=== PATIENT | female | born 1985 | race Caucasian/White ===

== ENCOUNTER 2020-05-01 14:30 | Emergency (ER) | payer OTHER, SELFPAY ==
--- NOTE | ~2020-05-01 | CT_ITS ---
EXAMINATION: CT brain wo con DATE: 05/01/2020 16:12 INDICATION: Syncope TECHNIQUE: Computed tomography (CT) of the head was performed without intravenous contrast. The mA wa s adjusted according to patient size. Iterative reconstruction technique was employed. Exam dose: 60 5.33 mGy-cm total exam DLP. COMPARISON: None FINDINGS: There is greater than expected cerebral volume loss for age. No intracranial mass lesion or hemorrhage or cerebrovascular accident is evident. No midline shift or mass effect. No subdural or epidural hematoma. The orbital contents are symmetric and unremarkable. Included paranasal sinuses and mastoid air cells are normally developed and aerated. No fracture or b one destruction of the cranial vault. IMPRESSION: Greater than expected cerebral volume loss; no acute intracranial finding or skull fract ure Reviewed, dictated and finalized at [facility]. Reviewed, dictated and finalized at [facility]. IMPRESSION: Greater than expected cerebral volume loss; no acute intracranial finding or skull fracture
[2020-05-01 14:36] LABS: Glucose Point of Care 162 (65-105)
[2020-05-01 14:50] VITALS: BP 159/102; PULSE 104; RESP 18; TEMP 37.5; O2SAT 100
[2020-05-01 15:15] LABS: Basophils Percent Auto 0.4 % (0.2-1.2); Eosinophils Percent Auto 0.2 % (0-4.4); Hematocrit 36.8 % (37.0-47.0); Hemoglobin 12.1 g/dL (12.0-15.0); Immature Granulocyte Absolute 0.04 K/mm3 (0.00-0.031); Immature Granulocyte Percent A 0.5 % (0-0.5); Lymphocytes Percent Auto 30.8 % (18.3-44.2); Mean Corpuscular HGB Conc 32.9 g/dl (32-36); Mean Corpuscular Hemoglobin 27.7 pg (26-34); Mean Corpuscular Volume 84.2 fl (80-100); Mean Platelet Volume 9.5 fl (7.4-10.4); Monocytes Absolute Auto 0.4 K/mm3 (0.1-0.6); Monocytes Percent Auto 4.7 % (2.6-8.5); Neutrophils Absolute Auto 5.4 K/mm3 (1.3-6.7); Neutrophils Percent Auto 63.4 % (45.5-73.1); Platelet Count Result 264 k/mm3 (150-375); Red Blood Count 4.37 M/mm3 (4.2-5.4); Red Cell Distribution Width 14.7 % (11.5-14.5); White Blood Count 8.5 K/mm3 (4.5-10.0)
[2020-05-01 15:20] LABS: Add Urine Microscopic? YES; Appearance Urine Clear (Clear); Bilirubin Urine Negative (Negative); Blood Urine 2+ (Negative); Color Urine Yellow (Yellow); Glucose Urine UA Negative (Negative); Ketones Urine Negative (Negative); Leukocyte Esterase Ur Trace LEU/UL (Negative); Mucus Urine Rare /lpf; Nitrate Urine Negative (Negative); Protein Urine Negative (Negative); Specific Grav Ur 1.012 (1.001-1.035); Squamous Epithelial Cell Urine Many /hpf (Few); Urobilinogen Urine Negative mg/dL (<2.0); WBC Urine 0-3 /hpf
[2020-05-01 15:32] LABS: Blood Urea Nitrogen 6 mg/dL (7-17); Calcium 8.9 mg/dL (8.4-10.2); Carbon Dioxide 23 mmol/L (22-30); Chloride 101 mmol/L (98-107); Estimated CRCL calculation 112 ml/min; Estimated Glomerular Filt Rate > 60; Glucose 136 mg/dL (65-105); Potassium 3.2 mmol/L (3.4-5.0); Sodium 136 mmol/L (137-145)
--- NOTE | 2020-05-01 16:38 | ED.GENADULT ---
HPI - General Adult General Chief complaint: Recheck/Abnormal Lab/Rx Stated complaint: weakness/ hx of hypoglycemia yesterday Time Seen by Provider: 05/01/20 15:52 Source: patient Mode of arrival: ambulatory Limitations: no limitations History of Present Illness HPI narrative: 34-year-old with a history of anxiety disorder here with complaints of passing out spell at the airbags last evening. Patient states that she went along with HER-2 other kids to the store to buy chicken while she was trying to do that she passed out for a few minutes. Paramedics were called and at that time as per her history her blood sugar was low and she was disoriented for a few minutes, she later regained her memory and was told to go to the emergency room. However patient states that she had 2 kids with her and she did not have child day care provider. She decided to come to the ER for evaluation. She presently denies any headache, chest pain, shortness of breath. She denies had similar episodes in the past. She states that she is not in any distress at this time. Onset (ago): day(s) (1) Severity: moderate Exacerbating factors: none Associated symptoms: denies other symptoms Related Data Home Medications Medication Instructions Recorded Confirmed bupropion HCl 150 mg PO QAM 05/01/20 buspirone 10 mg PO BID 05/01/20 gabapentin 300 mg PO TID 05/01/20 lorazepam 0.5 mg PO TID PRN 05/01/20 trazodone 50 mg PO HS 05/01/20 Allergies Allergy/AdvReac Type Severity Reaction Status Date / Time No Known Allergies Allergy Unverified 05/01/20 14:58 Review of Systems Review of Systems: All systems reviewed & are unremarkable except as noted in HPI and below Constitutional: Constitutional: Reports no additional constitutional complaints Eyes: Eyes: Reports no additional eye complaints ENT: Reports system reviewed and no additional complaints, except as documented Cardiovascular: Cardiovascular: Reports no additional cardiovascular complaints Respiratory: Respiratory: Reports as per HPI Gastrointestinal: Gastrointestinal: Reports no additional gastrointestinal complaints Integumentary/Breasts: Skin/Breast: Reports system reviewed and no additional complaints, except as docu Neurologic: Reports as per HPI Psychiatric: Psychiatric: Reports no additional psychiatric complaints Endocrine: Endocrine: Reports no additional endocrine complaints PMFSH Social History Social History Gender identity (if verbalized by the patient): Female Exam Const: General: no acute distress and alert Orientation/consciousness: patient oriented x3 HENMT: Head: normal to inspection Eyes: Pupils: Equal, round and reactive pupils present Neck: Neck: normal visual inspection Chest: Chest palpation & inspection: normal inspection of the chest Resp: Effort & Inspection: normal respiratory effort Auscultation: clear to auscultation bilaterally Cardio: Rate: regular rate Back/Spine/Pelvis: Back: no CVA tenderness Skin: General skin exam: normal color Neuro: General: patient oriented x3, moves all extremities and CN's II-XI intact bilaterally Extrem: General: normal to inspection Course Course Emergency Course: Patient still remains asymptomatic here in the ER. I discussed labs, CT findings with the patient. At this time syncope could be a seizure versus anxiety attack. Advised her to follow-up with the primary doctor and a neurologist in the near future. Vital Signs Vital signs: Vital Signs Temperature 37.5 C 05/01/20 14:50 Pulse Rate 104 H 05/01/20 14:50 Respiratory Rate 18 05/01/20 14:50 Blood Pressure 159/102 H 05/01/20 14:50 Pulse Oximetry 100 05/01/20 14:50 Temperature 37.5 C 05/01/20 14:50 Pulse Rate 104 H 05/01/20 14:50 Respiratory Rate 18 05/01/20 14:50 Blood Pressure 159/102 H 05/01/20 14:50 Pulse Oximetry 100 05/01/20 14:50 Medical Decision Making Vital Signs Vital Signs: Vital Signs Tempera
--- NOTE | 2020-05-01 16:54 | ECG_ITS ---
Measurements Intervals [place] Rate: 86 P: 11 AL: 132 QRS: 17 QRSD: 82 T: 9 QT: 344 QTc: 413 Interpretive Statements SINUS RHYTHM NORMAL ECG Electronically Signed On 05-02-2020 7:06:13 CDT by Jorge Sales D.O.
== END 2020-05-01 17:18 | disposition home or self-care (01) ==
PROVIDERS: Emergency Medicine; Emergency Provider Family Medicine
DX: R55 Syncope and collapse (principal)
CPT/HCPCS: 36415; 70450; 80048; 81001; 82948; 85025; 93005; 99284

== ENCOUNTER 2021-03-28 11:50 | Emergency (ER) | payer OTHER, SELFPAY ==
--- NOTE | ~2021-03-28 | XR_ITS ---
XR chest 2V DATE: 03/28/2021 12:03 INDICATION: Intermittent sharp shooting chest pain for 2 days TECHNIQUE: PA and lateral views COMPARISON: 06/15/2019 PA and lateral chest FINDINGS: Normal heart size. No hilar or mediastinal enlargement. No pulmonary infiltrate or consolid ation, pleural effusion or pulmonary vascular congestion or pneumothorax. IMPRESSION: Negative Reviewed, dictated and finalized at [facility]. IMPRESSION: Negative
--- NOTE | 2021-03-28 11:52 | ECG_ITS ---
Measurements Intervals [place] Rate: 110 P: 45 LA: 121 QRS: 43 QRSD: 73 T: 17 QT: 312 QTc: 424 Interpretive Statements SINUS TACHYCARDIA BORDERLINE ST-T WAVE ABNORMALITY- ANTEROLAT/INF LEADS BASELINE ARTIFACT- I, II, III, V3-V6 ABNORMAL ECG Electronically Signed On 03-28-2021 19:15:49 CDT by Jorge Sales D.O.
[2021-03-28 11:54] VITALS: BP 152/99; PULSE 119; RESP 18; TEMP 36.4; O2SAT 97
[2021-03-28 12:15] LABS: Basophils Absolute Auto 0.1 K/mm3 (0.0-0.1); Basophils Percent Auto 0.4 % (0.2-1.2); Eosinophils Percent Auto 0.3 % (0-4.4); Hematocrit 42.8 % (37.0-47.0); Hemoglobin 14.2 g/dL (12.0-15.0); Immature Granulocyte Absolute 0.05 K/mm3 (0.00-0.031); Immature Granulocyte Percent A 0.4 % (0-0.5); Lymphocytes Absolute Auto 4.11 K/mm3 (0.9-3.2); Lymphocytes Percent Auto 35.8 % (18.3-44.2); Mean Corpuscular HGB Conc 33.2 g/dl (32-36); Mean Corpuscular Volume 87.5 fl (80-100); Mean Platelet Volume 9.3 fl (7.4-10.4); Monocytes Absolute Auto 0.5 K/mm3 (0.1-0.6); Monocytes Percent Auto 4.4 % (2.6-8.5); Neutrophils Absolute Auto 6.7 K/mm3 (1.3-6.7); Neutrophils Percent Auto 58.7 % (45.5-73.1); Platelet Count Result 342 k/mm3 (150-375); Red Blood Count 4.89 M/mm3 (4.2-5.4); Red Cell Distribution Width 12.5 % (11.5-14.5); White Blood Count 11.5 K/mm3 (4.5-10.0)
[2021-03-28 12:25] LABS: Anion Gap 9 mmol/L (8-16); Blood Urea Nitrogen 8 mg/dL (7-17); Calcium 9.7 mg/dL (8.4-10.2); Carbon Dioxide 25 mmol/L (22-30); Chloride 104 mmol/L (98-107); Estimated CRCL calculation 136 ml/min; Estimated Glomerular Filt Rate > 60; Glucose 110 mg/dL (65-105); Potassium 3.7 mmol/L (3.4-5.0); Sodium 138 mmol/L (137-145)
[2021-03-28 12:25] LABS: INR 0.9; Prothrombin Time 12.3 Seconds (11.1-14.7)
[2021-03-28 12:27] LABS: Partial Thromboplastin Time 24.6 SECONDS (22.3-36.8)
[2021-03-28 12:34] VITALS: BP 138/85; PULSE 108; O2SAT 100
[2021-03-28 12:37] LABS: Troponin I < 0.012 ng/mL (0.000-0.034)
[2021-03-28 13:42] LABS: D Dimer 0.28 ug/mL (<0.48)
--- NOTE | 2021-03-28 13:54 | ED.CHESTPAIN ---
HPI - Chest Pain General Chief Complaint: Chest Pain Stated Complaint: chest pain Time Seen by Provider: 03/28/21 12:39 Source: patient Mode of arrival: ambulatory Limitations: no limitations History of Present Illness HPI narrative: 35-year-old with a history of depression here with complaints of having some chest discomfort started this morning. She states that I do not feel right. She also states that she is short of breath at times. No history of fever or chills. Denies any cough. MD complaint: chest discomfort Onset (ago): day(s) (1) Pain radiation: none Quality: heaviness Relieving factors: nothing Risk Factors Coronary artery disease risk factors: none Thoracic aortic dissection risk factors: none Related Data Home Medications Medication Instructions Recorded Confirmed cariprazine [Vraylar] 1.5 mg PO DAILY 03/28/21 gabapentin 300 mg PO BID 03/28/21 Allergies Allergy/AdvReac Type Severity Reaction Status Date / Time No Known Allergies Allergy Verified 03/28/21 12:29 Review of Systems Review of Systems: All systems reviewed & are unremarkable except as noted in HPI and below Constitutional: Constitutional: Reports no additional constitutional complaints Eyes: Eyes: Reports no additional eye complaints ENT: Reports system reviewed and no additional complaints, except as documented Cardiovascular: Cardiovascular: Reports no additional cardiovascular complaints Respiratory: Respiratory: Reports no additional respiratory complaints Gastrointestinal: Gastrointestinal: Reports no additional gastrointestinal complaints Musculoskeletal: Musculoskeletal: Reports no additional musculoskeletal complaints Integumentary/Breasts: Skin/Breast: Reports system reviewed and no additional complaints, except as docu Neurologic: Reports system reviewed and no additional complaints, except as documented Psychiatric: Psychiatric: Reports no additional psychiatric complaints PMFSH Social History Social History Gender identity (if verbalized by the patient): Female Exam Narrative: Exam Narrative: GENERAL: Well-appearing, well-nourished, and in no acute distress. HEAD: Normocephalic, atraumatic. EYES: PERRLA and EOMI.. NECK: Supple. CHEST: Clear to auscultation. No respiratory distress. HEART: Regular rate and rhythm. No murmur heard. Normal peripheral pulses. ABDOMEN: Soft, nontender, nondistended, normal active bowel sounds. EXTREMITIES: Normal range of motion. No edema. SKIN: Warm, dry, no rash. NEURO: No focal deficits. Alert and oriented x3. PSYCH: Normal mood and affect. Course Course Emergency Course: Patient comfortably sitting in on the bed in no discomfort had no further episodes of chest pain while she was here in the ER. I discussed labs, chest x-ray findings at this time her pain appears to be moderate typical. Advised her to follow-up with her primary doctor. Vital Signs Vital signs: Vital Signs Temperature 36.4 C 03/28/21 11:54 Pulse Rate 119 H 03/28/21 11:54 Respiratory Rate 18 03/28/21 11:54 Blood Pressure 152/99 H 03/28/21 11:54 Pulse Oximetry 97 03/28/21 11:54 Temperature 36.4 C 03/28/21 11:54 Pulse Rate 108 H 03/28/21 12:34 Respiratory Rate 18 03/28/21 11:54 Blood Pressure 138/85 03/28/21 12:34 Pulse Oximetry 100 03/28/21 12:34 MDM - Chest Pain Differential Diagnosis Differential diagnosis: Likely unstable angina pectoris, atypical chest pain, costochondritis and chest pain Lab Data Result diagrams: 03/28/21 12:10 03/28/21 12:10 Labs: Lab Results 03/28/21 03/28/21 03/28/21 Range/Units 12:09 12:09 12:10 WBC 11.5 H (4.5-10.0) K/mm3 RBC 4.89 (4.2-5.4) M/mm3 Hgb 14.2 (12.0-15.0) g/dL Hct 42.8 (37.0-47.0) % MCV 87.5 (80-100) fl MCH 29.0 (26-34) pg MCHC 33.2 (32-36) g/dl RDW 12.5 (11.5-14.5) % Plt Count 342
[2021-03-28 14:06] VITALS: BP 127/61; PULSE 86; RESP 19; O2SAT 100
== END 2021-03-28 14:07 | disposition home or self-care (01) ==
PROVIDERS: Emergency Medicine; Emergency Provider Family Medicine
DX: R07.89 Other chest pain (principal); R00.0 Tachycardia, unspecified; R94.31 Abnormal electrocardiogram [ECG] [EKG]
CPT/HCPCS: 36415; 71046; 80048; 84484; 85025; 85380; 85610; 85730; 93005; 99284

== ENCOUNTER 2021-12-12 10:02 | Emergency (ER) | payer OTHER, SELFPAY ==
[2021-12-12 10:23] VITALS: BP 140/99; PULSE 100; RESP 18; TEMP 36.4; O2SAT 100
--- NOTE | 2021-12-12 10:27 | ED.URI ---
HPI - URI/Sore Throat General Chief Complaint: Upper Respiratory Infection Stated Complaint: difficulty breathing, chest pain Time Seen by Provider: 12/12/21 10:27 Source: patient Mode of arrival: ambulatory Limitations: no limitations History of Present Illness HPI Narrative: Danica is a 36-year-old female patient who ambulated into the [facility]. Patient states she has had left-sided chest pain that wraps around to her back starting on yesterday. Patient states she does feel short of breath. Patient states she had an upper respiratory infection starting on November 30, 2021. She has taken Sudafed, DayQuil and NyQuil, and multiple other kxeu-ago-yeuaxun cough medications. Patient states she had multiple COVID test which all have been negative. Patient states she was feeling better and then yesterday started having the left-sided chest pain and occasional shortness of breath. Patient states she does have a cough that is nonproductive. Patient denies any past respiratory illnesses; she denies any cardiac history.; She denies any nausea, vomiting, diaphoresis or any other symptoms. She states that the pain is constant and has been there for greater than 24 hours. She states that increased activity does not change the pain. She states she is feels short of breath since November 30. MD elicited complaint: cough Related Data Home Medications Medication Instructions Recorded Confirmed bupropion HCl 150 mg PO QAM 05/01/20 12/12/21 Allergies Allergy/AdvReac Type Severity Reaction Status Date / Time No Known Allergies Allergy Verified 12/12/21 10:40 Review of Systems Review of Systems: CONSTITUTIONAL: Denies body aches, fever, chills, or sweats. EYES: Denies visual changes, redness, or discharge. ENT: Denies rhinorrhea,+ congestion, +sore throat, denies otalgia. CARDIOVASCULAR: +chest pain, denies palpitations, or edema. RESPIRATORY: + cough + dyspnea. GASTROINTESTINAL: Denies abdominal pain, nausea, vomiting, or diarrhea. GENITOURINARY: Denies dysuria or hematuria. SKIN: Denies rash, itching, or wounds. MUSCULOSKELETAL: Denies back pain, joint pain, or myalgia. NEUROLOGIC: Denies headache, numbness, tingling, or weakness. PSYCH: Denies depression or anxiety. All systems reviewed & are unremarkable except as noted in HPI and below PMFSH Social History Social History Gender identity (if verbalized by the patient): Female Comments At time of signature, I have reviewed and agree with nursing past medical, surgical, social and family history unless otherwise noted. Please see nursing chart for further information. There is no relevant family history pertinent to the presenting complaint Exam Narrative: GENERAL: Well-appearing, well-nourished, and in no acute distress. HEAD: Normocephalic, atraumatic. EYES: EOMI. No redness or drainage. Conjunctivae normal. ENT: Mucous membranes pink and moist. Nares clear. No rhinorrhea. Bilateral tympanic membranes are opaque with moderate fluid. No erythema is noted posterior pharynx is mildly erythemic with 4+ tonsils and moderate amount of postnasal drainage is noted. . Uvula midline. NECK: Normal AROM. Supple. Bilateral anterior cervical lymphadenopathy. CHEST: No respiratory distress. Clear to auscultation, minimally decreased in the upper lobes. HEART: Regular rate and rhythm. No murmur appreciated. Normal peripheral pulses. MUSCULOSKELETAL: No bony tenderness. EXTREMITIES: Normal range of motion. No edema. SKIN: Warm, dry, no rash. Capillary refill normal. Normal skin turgor. NEURO: No focal deficits. Alert and oriented x3. Gait steady. PSYCH: Normal affect. No signs of depression or anxiety. Course Course Emergency Course: Patient was examined. EKG was performed. Level of Care: Express Care Visit Vital Signs Vital signs: Vital Signs Temperature 36.4 C 12/12/21 10:23 Pulse Rate 100 12/12/21 10
--- NOTE | 2021-12-12 11:27 | ECG_ITS ---
Measurements Intervals [place] Rate: 81 P: 28 MT: 124 QRS: 35 QRSD: 81 T: 28 QT: 368 QTc: 428 Interpretive Statements SINUS RHYTHM NORMAL ECG Electronically Signed On 12-12-2021 13:47:18 DATA PROCESSOR by Jorge Sales D.O.
== END 2021-12-12 10:52 | disposition home or self-care (01) ==
PROVIDERS: Emergency Provider Nurse Practitioner Family
DX: M94.0 Chondrocostal junction syndrome [Tietze] (principal); F32.A Depression, unspecified
CPT/HCPCS: 93005; 99213; G0463

== ENCOUNTER 2022-10-15 21:03 | Emergency (ER) | payer OTHER, SELFPAY ==
--- NOTE | ~2022-10-15 | XR_ITS ---
EXAM: XR foot RT min 3V DATE: 10/15/2022 21:20 HISTORY: FOOT HIT UNK OBJECT WHILE ZIPLINING, PAIN BASE OF 1ST TOE . COMPARISON: None available. FINDINGS: Normal mineralization. No fracture or dislocation. No lytic or blastic lesion. Joint space s are maintained. Plantar enthesopathy.Z No erosion or periosteal change. Soft tissues within normal limits. IMPRESSION: No acute osseous finding in the right foot. Reviewed, dictated and finalized at [facility]. OGRAPHIC LABORATORY TECHNICIAN
[2022-10-15 21:10] VITALS: BP 130/99; PULSE 97; RESP 16; TEMP 36.9; O2SAT 100
--- NOTE | 2022-10-15 21:40 | ED.LOWEXIN ---
HPI - Extremity Injury (Lower) General Chief Complaint: Extremity Injury, Lower Stated Complaint: possible toe fracture Time Seen by Provider: 10/15/22 21:04 History of Present Illness HPI Narrative: 37-year-old female presents to the emergency room for evaluation of pain to her right toe. Patient states that she was zip lining earlier today when she stubbed her toe on the ground. Patient states that she is concerned that she may have dislocated or broken her right great toe. Pain is worse with ambulation, specifically when she flexes her great toe. Patient has not taken any medications to alleviate her symptoms. Related Data Home Medications Medication Instructions Recorded Confirmed bupropion HCl 150 mg 24 hr tablet, 150 mg PO QAM 05/01/20 08/04/22 extended release cariprazine 1.5 mg capsule 1.5 mg PO DAILY 03/28/21 08/04/22 (Vraylar) gabapentin 300 mg tablet 300 mg PO BID 03/28/21 08/04/22 lorazepam 1 mg tablet 1 mg PO DAILY PRN 08/04/22 08/04/22 Allergies Allergy/AdvReac Type Severity Reaction Status Date / Time No Known Allergies Allergy Verified 08/04/22 09:22 Review of Systems Review of Systems: CONSTITUTIONAL: Denies fever, chills, or sweats. EYES: Denies visual changes, redness, or discharge. ENT: Denies rhinorrhea, congestion, sore throat, or otalgia. CARDIOVASCULAR: Denies chest pain, palpitations, or edema. RESPIRATORY: Denies cough or dyspnea. GASTROINTESTINAL: Denies abdominal pain, nausea, vomiting, or diarrhea. GENITOURINARY: Denies dysuria or hematuria. SKIN: Denies rash or itching. MUSCULOSKELETAL: Reports right great toe pain NEUROLOGIC: Denies headache, numbness, dizziness, or weakness. PSYCHIATRIC: Denies anxiety or depression. [facility] Past Medical History Medical History Anemia Bipolar 1 disorder Carpal tunnel syndrome Counseling on health promotion and disease prevention Depression Encounter for medication management Inflammatory arthritis Thyroid disease Undifferentiated connective tissue disease Vitamin D deficiency Surgical History Surgical History H/O section History of carpal tunnel surgery Family History Family History Mother Arthritis Depression Heart disease Father Depression Heart disease Hypertension Heart attack Sibling Depression Mental health disorder Grandparent Depression Social History Social History Smoking status: Never smoker Alcohol intake: current Gender identity (if verbalized by the patient): Female Exam Narrative: GENERAL: Well-appearing, well-nourished, no physical limitations, and in no acute distress. HEAD: Normocephalic, atraumatic. EYES: Conjunctivae normal, PERRLA and EOMI. CHEST: Clear to auscultation. No respiratory distress. No wheezes rales or rhonchi. HEART: Regular rate and rhythm. No murmur heard. Normal peripheral pulses. EXTREMITIES: Right foot: +TTP with ecchymosis to the MTP, no bony abnormality, neurovascular is intact distally, no obvious bony abnormality SKIN: Warm, dry, no rash. No noted wounds NEURO: No focal deficits. Alert and oriented x3. MAEW. CN's II-XI intact bilaterally, antalgic gait PSYCH: Cooperative. Normal mood and affect. Course Vital Signs Vital signs: Vital Signs Temperature 36.9 C 10/15/22 21:10 Pulse Rate 97 10/15/22 21:10 Respiratory Rate 16 10/15/22 21:10 Blood Pressure 130/99 H 10/15/22 21:10 Pulse Oximetry 100 10/15/22 21:10 Temperature 36.9 C 10/15/22 21:10 Pulse Rate 97 10/15/22 21:10 Respiratory Rate 16 10/15/22 21:10 Blood Pressure 130/99 H 10/15/22 21:10 Pulse Oximetry 100 10/15/22 21:10 Discharge Plan Discharge Clinical Impression: Sprain of great toe, right Patient Disposition: Home, [place]n
[2022-10-15 21:45] VITALS: BP 135/89; PULSE 93; RESP 16; O2SAT 100
== END 2022-10-15 21:46 | disposition home or self-care (01) ==
PROVIDERS: Emergency Provider Nurse Practitioner Family; PCP Nurse Practitioner
DX: S93.501A Unspecified sprain of right great toe, initial encounter (principal); M19.90 Unspecified osteoarthritis, unspecified site; M35.9 Systemic involvement of connective tissue, unspecified; E07.9 Disorder of thyroid, unspecified; E55.9 Vitamin D deficiency, unspecified; F31.9 Bipolar disorder, unspecified; Z86.2 Personal history of diseases of the blood and blood-forming organs and certain disorders involving the immune mechanism; W22.8XXA Striking against or struck by other objects, initial encounter
CPT/HCPCS: 73630; 99283

== ENCOUNTER 2022-11-08 16:30 | Outpatient (CLI) | payer OTHER, SELFPAY ==
--- NOTE | ~2022-11-08 | US_ITS ---
Pelvic ultrasound. Clinical History: Menorrhagia Technique: Realtime transabdominal and transvaginal scanning of the pelvis was performed. Color flow Doppler and Doppler spectral analysis were performed. Findings: The uterus is anteverted. The endometrial stripe has a thickness of 14 mm. No focal mass i s identified. The right ovary measures 4.3 x 2.0 x 2.6 cm. Right ovarian corpus luteal cyst present. The left ovary measures 3.3 x 1.7 x 1.5 cm. No significant left ovarian or adnexal mass is seen. Vascular flow present in both ovaries on Doppler spectral analysis. There is no evidence of free fluid in the cul de sac. Impression: No significant abnormality seen. Reviewed, dictated and finalized at location [] FIELD OPERATOR Impression: No significant abnormality seen.
== END 2022-11-08 16:31 | disposition home or self-care (01) ==
PROVIDERS: PCP Nurse Practitioner; Visit Provider Nurse Practitioner
DX: N92.0 Excessive and frequent menstruation with regular cycle (principal); N93.9 Abnormal uterine and vaginal bleeding, unspecified
CPT/HCPCS: 76830; 76856

== ENCOUNTER 2022-12-30 13:22 | Outpatient (CLI) | payer OTHER, SELFPAY | END 2022-12-30 13:23 | disposition home or self-care (01) | PROVIDERS: PCP Nurse Practitioner; Visit Provider Obstetrics & Gynecology | DX: N92.0 Excessive and frequent menstruation with regular cycle (principal) | CPT/HCPCS: 36415; 86850; 86900; 86901 ==

== ENCOUNTER 2023-01-06 01:01 | Day surgery (SDC) | payer OTHER, SELFPAY ==
[2022-12-26 14:56] VITALS: BMI 32.1
--- NOTE | 2022-12-26 15:03 | PC.NURSE ---
Report to the Outpatient Waiting Room, entrance under the green pavilion located off [facility], at time 6:00 on date 01/06/23. Planned Procedure Time: 7:30. Time changes happen often and if your time is changed the preop area will call you the afternoon before. - You and your visitor will be asked to self-screen and do not enter if you have any COVID symptoms. - Only one visitor is requested with a max of two and NO children visitors are allowed at this time. - The patient visitor may be requested to leave or wait in car when not with patient due to distancing restrictions. - A mask is optional within the hospital at this time. Patients may have clear liquids (water, carbonated beverages, clear teas, apple juice) until 3 hours prior to surgery (4:30) with a maximum of 20 ounces. - No food from midnight until time of surgery Take the following medications with a SIP of water the morning of surgery: BUPROPION, VRAYLAR, GABAPENTIN, PREDNISONE DO NOT STOP ANY OF YOUR OTHER PRESCRIPTION MEDICATIONS PRIOR TO SURGERY EXCEPT THE FOLLOWING Medications to discontinue per physician: VITAMINS/SUPPLEMENTS Date to take last dose: 01/02/[address] RANDALL ABOUT NAPROXEN/IBUPROFEN Please no make-up, nail serbian, hairspray, perfume, deodorant, or body powder the day of surgery. No jewelry (including any body piercings) or valuables the day of surgery, leave them at home. Please take a shower or bath the night before, or the morning of, surgery with an antibacterial soap. Wear comfortable, loose fitting clothing. - Jewelry must be removed prior to entering the operating room. Rings and piercings that are not removed may be cut off. - The hospital will not accept responsibility for valuables. - Please leave all valuables, including medications, at home the day of surgery. If you are going home after surgery, a licensed driver helper must drive you home. - NO public transportation without another adult if you receive anesthesia. - We recommend that an adult stay with you for 24 hours following discharge. - We also recommend that you do not drive, make important decision, drink alcoholic beverages, or take any drugs that were not prescribed by your health care provider for at least 24 hours after your discharge time. Follow any additional instructions given to you from your surgeon. If you or anyone in your household have experienced Covid symptoms in the past week, please notify your surgeon or the nurse liaison at the phone number below for possible testing. Telephone instructions given to TONJA FELDER and asked if any additional questions and then verbalized understanding. Patient advised to call surgeon office or pre surgery nurse liaison [phone] if any additional questions.
--- NOTE | 2023-01-05 13:26 | P.PNAN_ITS ---
Anes - Initial Pre Proc Eval Procedure: Operation Date: 01/06/23 07:30 Proposed Procedures p Robotic Assisted Laparoscopic Hysterectomy with Bilateral Salpingectomy - Saran Kim MD Date/Time: 01/05/23 13:26 Surgeon: Saran Kim MD Pre Op Diagnosis: menorrhagia Patient Data Age: 37 Gender: F Height: 1.63 m Weight: 84.82 kg Allergies Allergy/AdvReac Type Severity Reaction Status Date / Time No Known Allergies Allergy Verified 12/26/22 14:54 Home Medications Medication Instructions Recorded Confirmed Type bupropion HCl 150 mg 24 hr tablet, 150 mg PO QAM 05/01/20 12/26/22 History extended release cariprazine 1.5 mg capsule 1.5 mg PO DAILY 03/28/21 12/26/22 History (Vraylar) gabapentin 300 mg tablet 300 mg PO BID 03/28/21 12/26/22 History naproxen 500 mg tablet (Naprosyn) 500 mg PO BID #28 tabs 12/12/21 12/26/22 Rx hydroxychloroquine 200 mg tablet 400 mg PO DAILY #60 tabs 08/31/22 12/26/22 Rx (Plaquenil) prednisone 2.5 mg tablet 2.5 mg PO DAILY #40 tabs 11/09/22 12/26/22 Rx cholecalciferol (vitamin D3) 125 125 mcg PO DAILY 12/26/22 12/26/22 History mcg (5,000 unit) tablet (Vitamin D3) ferrous sulfate 325 mg (65 mg 325 mg PO DAILY 12/26/22 12/26/22 History iron) tablet (Iron (ferrous sulfate)) ibuprofen 600 mg tablet 600 mg PO Q6H PRN Pain 12/26/22 12/26/22 History multivitamin 1 tablet PO DAILY 12/26/22 12/26/22 History Results Review: All pre-operative results and documents have been reviewed as part of the pre- operative evaluation. [facility] Past Medical History Medical History Anemia Bipolar 1 disorder Carpal tunnel syndrome Counseling on health promotion and disease prevention Depression Encounter for medication management Inflammatory arthritis Thyroid disease Undifferentiated connective tissue disease Vitamin D deficiency Surgical History Surgical History H/O section History of carpal tunnel surgery Family History Family History Mother Arthritis Depression Heart disease Father Depression Heart disease Hypertension Heart attack Sibling Depression Mental health disorder Grandparent Depression Social History Social History Smoking status: Never smoker Alcohol intake: current Drinks per week: 8 Alcohol use details: BEER Substance use: never Substance use type: does not use Living arrangements: with family Additional living arrangements comments: FATHER AND CHILDREN Gender identity (if verbalized by the patient): Female Spiritual care concerns: No Anes - Eval Final PreProcedure Day of Procedure 01/05/23 13:26 Results Review: All pre-operative results and documents have been reviewed as part of the pre- operative evaluation. Informed Consent: The patient's anesthetic plan and its attendant risks and benefits were discussed with the patient/family/POA. Questions were solicited and answers provided to the satisfaction of the patient/family/POA.
[2023-01-06] VITALS (9 sets, daily range): BP systolic 125–145; BP diastolic 81–88; PULSE 81–96; RESP 12–23; TEMP 36.6–37.1; O2SAT 93–100
[2023-01-06] MEDS: ACETAMINOPHEN 500 MG TABLET 1000 MG PO (06:16)
[2023-01-06] MEDS: LACTATED RINGERS 1,000 ML 30 ML IV CONT ×2 (06:30→09:48)
[2023-01-06] MEDS: KETOROLAC 15 MG/ML VIAL (*BKC) IV PUSH (06:40)
--- NOTE | 2023-01-06 06:56 | WPDANESEPPF ---
Anes - Initial Pre Proc Eval Procedure: Operation Date: 01/06/23 07:30 Proposed Procedures p Robotic Assisted Laparoscopic Hysterectomy with Bilateral Salpingectomy - Saran Kim MD Date/Time: 01/06/23 06:56 Surgeon: Saran Kim MD Pre Op Diagnosis: menorrhagia Patient Data Age: 37 Gender: F Height: 1.63 m Weight: 82.35 kg Last Vital Signs Temp 36.7 C 01/06/23 06:50 Pulse 86 01/06/23 06:50 Resp 20 01/06/23 06:50 BP 128/82 01/06/23 06:50 Pulse Ox 100 01/06/23 06:50 O2 Del Method Room Air 01/06/23 06:50 Allergies Allergy/AdvReac Type Severity Reaction Status Date / Time No Known Allergies Allergy Verified 01/06/23 06:12 Home Medications Medication Instructions Recorded Confirmed Type bupropion HCl 150 mg 24 hr tablet, 150 mg PO QAM 05/01/20 01/06/23 History extended release cariprazine 1.5 mg capsule 1.5 mg PO DAILY 03/28/21 01/06/23 History (Vraylar) gabapentin 300 mg tablet 300 mg PO BID 03/28/21 01/06/23 History naproxen 500 mg tablet (Naprosyn) 500 mg PO BID #28 tabs 12/12/21 01/06/23 Rx hydroxychloroquine 200 mg tablet 400 mg PO DAILY #60 tabs 08/31/22 01/06/23 Rx (Plaquenil) cholecalciferol (vitamin D3) 125 125 mcg PO DAILY 12/26/22 01/06/23 History mcg (5,000 unit) tablet (Vitamin D3) ferrous sulfate 325 mg (65 mg 325 mg PO DAILY 12/26/22 01/06/23 History iron) tablet (Iron (ferrous sulfate)) ibuprofen 600 mg tablet 600 mg PO Q6H PRN Pain 12/26/22 01/06/23 History multivitamin 1 tablet PO DAILY 12/26/22 01/06/23 History Patient hx anesthesia problems: none Family hx anesthesia problems: none Results Review: All pre-operative results and documents have been reviewed as part of the pre-operative evaluation. [facility] Past Medical History Medical History Anemia Bipolar 1 disorder Carpal tunnel syndrome Counseling on health promotion and disease prevention Depression Encounter for medication management Inflammatory arthritis Thyroid disease Undifferentiated connective tissue disease Vitamin D deficiency Surgical History Surgical History H/O section History of carpal tunnel surgery Family History Family History Mother Arthritis Depression Heart disease Father Depression Heart disease Hypertension Heart attack Sibling Depression Mental health disorder Grandparent Depression Social History Social History Smoking status: Never smoker Alcohol intake: current Drinks per week: 8 Alcohol use details: BEER Substance use: never Substance use type: does not use Living arrangements: with family Additional living arrangements comments: FATHER AND CHILDREN Gender identity (if verbalized by the patient): Female Spiritual care concerns: No Anes - Eval Final PreProcedure Day of Procedure 01/06/23 06:56 Patient weight: obese Heart: regular rate and rhythm Lungs: clear to auscultation Airway: Mallampati scale class II Neurological: alert and oriented Last oral intake: >/= 8 hours ASA classification: II Emergent: no Anesthetic plan: proceed Anesthesia type and monitoring: general ETT and standard monitoring Results Review: All pre-operative results and documents have been reviewed as part of the pre-operative evaluation. Informed Consent: The patient's anesthetic plan and its attendant risks and benefits were discussed with the patient/family/POA. Questions were solicited and answers provided to the satisfaction of the patient/family/POA.
--- NOTE | 2023-01-06 07:17 | WPDHPUPDATE1 ---
History and Physical Update Update Date/Time: 01/06/23 07:17 History and Physical has been reviewed, including an updated exam of the patient. There are NO changes in the patient's condition. Risks, benefits, and alternatives have been discussed and questions answered. Patient agrees to proceed with procedure.
[2023-01-06] MEDS: ceFAZolin 2 GM/D5W 50 ML 2 GM/50 ML BAG IVPB (07:31)
--- NOTE | 2023-01-06 09:36 | W.PM.PROC2 ---
Procedure Note - Detailed Date of Procedure 01/06/23 Pre-op Diagnosis menorrhagia Post-op Diagnosis Same Procedure Performed Robot assisted Total hysterectomy with bilateral salpingectomy. Surgeon Saran Kim MD Anesthesia General Indications heavy vaginal bleeding, pelvic pain Findings normal-appearing uterus, ovaries, and tubes. . Description of Procedure This patient was taken to the operating room. She was prepped and draped in the dorsal lithotomy position after induction of general anesthesia. The uterine manipulator and Priscila cup were placed. This was done with a speculum and tenaculum. The speculum was placed. The cervix was grasped with a tenaculum. The stay sutures were placed at 3 and 9:00 a.m.. The stay sutures of 0 Vicryl were tied to the appropriately Size scope after it was slipped around the cervix.. The tip of the AXEL manipulator was placed in the intrauterine cavity. The cup was slid into place around the cervix and into the fornices. It was locked into place. The sutures were then wrapped around the handle and tied under tension. A 8 mm skin incision was made in the left upper quadrant the abdomen. a 5 mm Visiport trocar was inserted into abdominal cavity and pneumoperitoneum was achieved. A 8 mm supraumbilical incision was made and a 8 mm trocar was inserted into the intrauterine cavity under direct visualization of the scope. an 8 mm incision was made in the right upper quadrant of the abdomen and an 8 mm robotic trocar was placed the inter uterine cavity under direct visualization the scope. An 11 mm trocar was inserted in the right upper quadrant of the abdomen rectal is a cystoscope after an incision was made there as well. The robot was docked. Electronic Orientation of the robot was performed. Bilateral ureteral lysis was performed. This was done from the pelvic brim down to the uterine artery. This was done with careful dissection using sharp and blunt dissection. The fallopian tubes were removed bilaterally. The mesosalpinx around the fallopian tubes were cauterized transected with LigaSure cautery. This was done in a bilateral fashion from the ovary to the uterine cornua. The fallopian tube was transected at the uterine cornu and amputated. The tube was taken out the left lower quadrant trocar site. In a stepwise fashion along the lateral aspects of the uterus the round ligament and broad ligaments were cauterized transected down to the level of the uterine arteries. A bladder flap was created in the bladder was moved distally to the end of the cervix and over the Priscila cup. The bilateral uterine arteries were cauterized and transected. Colpotomy was then performed. In a circumferential fashion the vagina was transected using unipolar cautery. The incision was made down on the Priscila cup. The uterus and cervix were taken out through the vagina. A pneumo occluder was placed in the vagina. The vaginal cuff was closed with a 0 V lock suture in a running fashion. The pelvis was irrigated with copious amounts antibiotic irrigation. The ureters were again examined and found to be intact and flowing freely under the uterine arteries into the bladder. The bladder was intact. It was examined directly. The vagina was irrigated with Betadine solution after removal of the Pneumo occluder. the trocars were removed after the robot was undocked. The skin was closed with subacute or Dermabond. The patient was taken to recovery room. She was stable condition. Sponge lap and needle counts were correct x2. Estimated Blood Loss 125 Urine Output 800 Drains Yes Packing No Pathology Yes Complications No immediate complications Condition Stable Disposition Floor
--- NOTE | 2023-01-06 09:52 | SUR.OPER ---
post op assessment in PACU/patient stated her wrists and hands and hips and lower back were without pain,numbness or tingling. Moving legs and moves hands wrists freely.
[2023-01-06] MEDS: fentaNYL CITRATE INJ (*CRX) 100 MCG/2 ML VIAL 25 MCG IV PUSH ×5 (09:57→10:26)
--- NOTE | 2023-01-06 10:57 | PC.NURSE ---
This patient, Danica Aguirre, was received from PACU on 01/06/23 at 1057. Patient/family oriented to unit policies and routines
[2023-01-06] MEDS: KETOROLAC 30 MG/ML VIAL (*BKC) IV PUSH ×2 (11:17→17:10)
[2023-01-06] MEDS: SIMETHICONE 80 MG TAB.CHEW PO ×4 (11:51→20:20)
[2023-01-06] MEDS: DEXTROSE 5%/LACTATED RINGERS 1,000 ML 125 ML IV CONT (11:51)
[2023-01-06] MEDS: HYDROcodone/acetaminophen (*CRX) 5-325 MG TABLET 1 TAB PO ×2 (13:58→17:11)
[2023-01-06] MEDS: GABAPENTIN 300 MG CAPSULE PO (17:10)
[2023-01-06] MEDS: HYDROcodone/acetaminophen (*CRX) 10-325 MG TABLET 1 TAB PO (20:19)
[2023-01-07 00:40] VITALS: BP 127/81; PULSE 88; RESP 16; TEMP 36.9; O2SAT 99
[2023-01-07] MEDS: HYDROcodone/acetaminophen (*CRX) 10-325 MG TABLET 1 TAB PO ×2 (00:44→08:01)
[2023-01-07 04:27] VITALS: BP 137/84; PULSE 91; RESP 18; TEMP 36.9; O2SAT 99
[2023-01-07 08:00] VITALS: BP 130/86; PULSE 82; RESP 16; TEMP 37; O2SAT 98
[2023-01-07] MEDS: HYDROXYCHLOROQUINE SULFATE 200 MG TABLET 400 MG PO (08:00)
[2023-01-07] MEDS: GABAPENTIN 300 MG CAPSULE PO (08:00)
[2023-01-07] MEDS: buPROPion HCL XL (24 HR) 150 MG TABCR PO (08:00)
[2023-01-07] MEDS: SIMETHICONE 80 MG TAB.CHEW PO (08:01)
[2023-01-07] MEDS: IBUPROFEN 600 MG TABLET PO (08:01)
--- NOTE | 2023-01-07 08:42 | PM.GYNPNOP ---
SLIDE DEVELOPER - A/P Postoperative Procedures: Procedures Operation Date: 01/06/23 07:30 Actual Procedure Side Surgeon p Robotic Assisted Laparoscopic Hysterectomy with Bilateral Salpingectomy Bilateral Saran Kim MD Postoperative day: 1 Postoperative status: doing well Postoperative plan: see orders Time Spent With Patient Time: Total time spent is greater than 50% in coordination of care (as documented) at patient's floor/unit and/or counseling patient: Time with patient: less than 15 minutes SLIDE DEVELOPER- PN:Subj Post-Op Subjective Date/time seen: 01/07/23 08:42 Subjective: patient reports feeling better, patient has no complaints and pain is well controlled Exam Const: General: healthy appearing, comfortable and no acute distress Resp: Auscultation: clear to auscultation bilaterally, no rales, no rhonchi and no wheezes Cardio: Rate: regular rate Heart sounds: no click, no murmurs and no rubs GI: Inspection: non-distended Auscultation: normal bowel sounds Extrem: General: normal to inspection, no pedal edema and no calf tenderness SLIDE DEVELOPER - PN: Obj Data Vital Signs Vital Signs: Vital Signs - 24 hr 01/06/23 09:47 01/06/23 10:02 01/06/23 10:17 Temperature 97.9 F Pulse Rate 88 85 82 Respiratory Rate 23 H 18 16 Blood Pressure 145/84 H 135/88 138/88 Pulse Oximetry 100 100 93 Oxygen Delivery Simple Face Mask Simple Face Mask Room Air Oxygen Flow Rate 10 10 01/06/23 10:32 01/06/23 10:47 01/06/23 11:00 Temperature 98.8 F 98.4 F Pulse Rate 90 89 81 Respiratory Rate 12 17 16 Blood Pressure 139/85 138/87 143/81 H Pulse Oximetry 94 93 96 Oxygen Delivery Room Air Room Air Oxygen Flow Rate 01/06/23 15:45 01/06/23 20:15 01/06/23 20:15 Temperature 98.7 F 98 F Pulse Rate 94 96 Respiratory Rate 16 18 Blood Pressure 125/82 134/86 Pulse Oximetry 98 99 Oxygen Delivery Room Air Oxygen Flow Rate 01/07/23 00:40 01/07/23 04:27 01/07/23 04:27 Temperature 98.5 F 98.4 F Pulse Rate 88 91 Respiratory Rate 16 18 Blood Pressure 127/81 137/84 Pulse Oximetry 99 99 Oxygen Delivery Room Air Oxygen Flow Rate Intake/Output Intake/Output: Intake & Output 01/04/23 01/05/23 01/06/23 01/07/23 23:59 23:59 23:59 23:59 Intake Total 1921 300 Output Total 2660 200 Balance -739 100 Meds/Results Medications: Active Medications Generic Name Dose Route Start Last Admin Trade Name Freq PRN Reason Stop Dose Admin Hydrocodone Bitart/Acetaminophen 1 tab 01/06/23 10:50 01/06/23 17:11 Hydrocodone/Acetaminophen (*Crx) 5-325 Mg Tablet PO 1 tab Q3H PRN Administration Pain Rated 5 or Less Hydrocodone Bitart/Acetaminophen 1 tab 01/06/23 10:50 01/07/23 08:01 Hydrocodone/Acetaminophen (*Crx) 10-325 Mg Tablet PO 1 tab Q3H PRN Administration Pain Rated 6 or Greater Bupropion HCl 150 mg 01/07/23 09:00 01/07/23 08:00 Bupropion Hcl Xl (24 Hr) 150 Mg Tabcr PO 150 mg QAM CINDY Administration Gabapentin 300 mg 01/06/23 17:00 01/07/23 08:00 Gabapentin 300 Mg Capsule PO 02/05/23 16:59 300 mg BID CINDY Administration Hydroxychloroquine Sulfate 400 mg 01/07/23 09:00 01/07/23 08:00 Hydroxychloroquine Sulfate 200 Mg Tablet PO 400 mg DAILY CINDY Administration Ibuprofen 600 mg 01/06/23 10:50 01/07/23 08:01 Ibuprofen 600 Mg Tablet PO 600 mg Q6H PRN Administration Cramping Miscellaneous Information 0 each 01/06/23 00:01 Cariprazine [Vraylar] 1.5 Mg = Non Formulary, Please Have Home Med Brougt In. XX 02/05/23 00:00 CLARIFY CINDY Naloxone HCl 0.1 mg 01/06/23 10:50 Naloxone Hcl 0.4 Mg/Ml Vial IV PUSH Q2M PRN Respiratory rate less than 10 Non-Formulary Medication 1.5 mg 01/07/23 09:00 Cariprazine [Vraylar] PO 02/06/23 08:59 DAILY CINDY Ondansetron HCl 4 mg 01/06/23 10:50 Ondansetron Inj 4 Mg/2 Ml Vial IV PUSH Q6H PRN Nausea And Vomiting Simethicone 80 mg 01/06/23 11:31 01/07/23
== END 2023-01-07 10:00 | disposition home or self-care (01) ==
LOC: ANHSURGERY 05:55 → ANHOB2 11:03
PROVIDERS: PCP Nurse Practitioner; Visit Provider Obstetrics & Gynecology
PROC: (CPT 58571; principal; 2023-01-06 07:30)
DX: N92.0 Excessive and frequent menstruation with regular cycle (principal); R10.2 Pelvic and perineal pain; N84.0 Polyp of corpus uteri; N80.00 Endometriosis of the uterus, unspecified; D25.1 Intramural leiomyoma of uterus; F31.9 Bipolar disorder, unspecified; E55.9 Vitamin D deficiency, unspecified; E66.9 Obesity, unspecified; Z68.31 Body mass index [BMI] 31.0-31.9, adult
CPT/HCPCS: 58571; S2900; 88307; 99199; A9270; J0690; J1100; J1170; J1885; J2250; J2405; J2704; J2710; J3010; J7030; J7120; J7121

== ENCOUNTER 2024-01-30 14:18 | Emergency (ER) | payer OTHER, SELFPAY ==
--- NOTE | 2024-01-30 14:32 | ED.GENADULT ---
HPI - General Adult General Stated complaint: flu like symptoms Source: patient, RN notes reviewed and old records reviewed Mode of arrival: ambulatory Limitations: no limitations History of Present Illness HPI narrative: 38 year old patient presents to [facility] with c/o cough, congestion, bilateral ear pressure, frequent sneezing this started Monday. Patient is taking DayQuil NyQuil with relief. Patient denies fevers, myalgia, chest pain, shortness of breath. Related Data Home Medications Medication Instructions Recorded Confirmed gabapentin 300 mg tablet 300 mg PO BID 03/28/21 01/30/24 Allergies Allergy/AdvReac Type Severity Reaction Status Date / Time No Known Allergies Allergy Verified 01/30/24 14:34 Review of Systems Constitutional: Constitutional: Reports no additional constitutional complaints, Denies body ache(s), Denies chills, Denies fatigue, Denies fever(s) and Denies headache(s) Eyes: Eyes: Reports no additional eye complaints and Denies blurry vision ENT: Reports system reviewed and no additional complaints, except as documented, Denies vertigo, Denies dizziness, Denies ear discharge, Reports otalgia, Denies facial pain, Denies headache(s), Reports nasal congestion, Reports nasal discharge, Denies sinus pain, Reports sinus pressure and Denies sore throat Cardiovascular: Cardiovascular: Reports no additional cardiovascular complaints, Denies chest pain, Denies chest pain at rest, Denies rapid heart rate and Denies dyspnea Respiratory: Respiratory: Reports no additional respiratory complaints, Reports chest congestion, Reports cough, Denies pain on inspiration, Denies pain with cough and Denies dyspnea Gastrointestinal: Gastrointestinal: Denies abdominal pain, Denies diarrhea, Denies nausea and Denies vomiting Integumentary/Breasts: Skin/Breast: Denies rash Neurologic: Reports system reviewed and no additional complaints, except as documented, Denies vertigo, Denies dizziness and Denies headache(s) Endocrine: Endocrine: Denies fatigue PMFSH Past Medical History Medical History Anemia Bipolar 1 disorder Carpal tunnel syndrome Counseling on health promotion and disease prevention Depression Encounter for medication management Inflammatory arthritis Thyroid disease Undifferentiated connective tissue disease Vitamin D deficiency Surgical History Surgical History H/O section History of carpal tunnel surgery Family History Family History Mother Arthritis Depression Heart disease Father Depression Heart disease Hypertension Heart attack Sibling Depression Mental health disorder Grandparent Depression Social History Social History Smoking status: Never smoker Alcohol intake: current Drinks per week: 8 Alcohol use details: BEER Substance use: never Substance use type: does not use Living arrangements: with family Additional living arrangements comments: FATHER AND CHILDREN Gender identity (if verbalized by the patient): Female Spiritual care concerns: No Comments At the time of my signature, I reviewed and agree with the nursing past medical, surgical, social, and family history. There is no relevant family history pertinent to the patient complaint. Exam Const: General: cooperative, healthy appearing, no acute distress and well nourished Nutritional Appearance: well nourished Orientation/consciousness: patient oriented x3 Limitations: no limitations HENMT: Head: normal to inspection and normocephalic Ears: external ears normal, TM normal on the left, EAC's normal, mastoids normal and TM abnormal dull on the right and retracted on the right Face/Nose/Sinus: normal facial exam Face and sinus: normal facial exam Mouth
[2024-01-30 14:36] VITALS: BP 138/86; PULSE 78; RESP 18; TEMP 36.6; O2SAT 100
== END 2024-01-30 14:53 | disposition home or self-care (01) ==
PROVIDERS: Emergency Provider Registered Nurse; PCP Nurse Practitioner
DX: B34.9 Viral infection, unspecified (principal); H69.91 Unspecified Eustachian tube disorder, right ear; Z20.822 Contact with and (suspected) exposure to COVID-19; M13.80 Other specified arthritis, unspecified site
CPT/HCPCS: 87426; 87804; 99213; G0463